=== PATIENT | male | born 1975 | race Two or more races ===

== ENCOUNTER 2021-02-07 05:13 | Day surgery (SDC) | payer OTHER ==
[2021-02-04 11:27] VITALS: BMI 29.5
[2021-02-07] MEDS ORDERED: MIDAZOLAM HCL 2 MG/2 ML SINGLE DOSE VIAL ONE (07:52)
[2021-02-07] MEDS ORDERED: GLYCOPYRROLATE 0.2 MG/1 ML VIAL ONE (07:52)
[2021-02-07] MEDS ORDERED: LIDOCAINE HCL/PF 2% SDV 5ML VIAL ONE (07:52)
[2021-02-07] MEDS ORDERED: PROPOFOL 20 ML ONE ×2 (07:52)
[2021-02-07] MEDS ORDERED: KETOROLAC TROMETHAMINE 30 MG/1 ML VIAL ONE (08:07)
[2021-02-07 12:48] VITALS: BP 128/73; PULSE 69; TEMP 98.6
== END 2021-02-07 12:20 | disposition home or self-care (01) ==
LOC: JASU-SURG 05:13
PROVIDERS: ATTEND Urology
PROC: 0TF3XZZ Fragmentation in Right Kidney Pelvis, External Approach (ICD-10-PCS; principal; 2021-02-07 08:00)
DX: N20.0 Calculus of kidney (principal)